=== PATIENT | male | born 1965 | race Two or more races ===

== ENCOUNTER 2016-11-14 14:27 | Emergency (ER) | payer OTHER ==
[~2016-11-14] VITALS: Ht 170.2 cm; Wt 81.8 kg
[2016-11-14 16:04] LABS: ASPARTATE AMINO TRANSFERASE 21 U/L (15-37); BLOOD UREA NITROGEN 14 mg/dL (7-18)
[2016-11-14 18:35] VITALS: BP 128/88
== END 2016-11-14 19:04 | disposition home or self-care (01) ==
LOC: ED 18:30
DX: N40.1 Benign prostatic hyperplasia with lower urinary tract symptoms (principal); R39.11 Hesitancy of micturition; R10.32 Left lower quadrant pain
CPT/HCPCS: 36415; 74020; 74176; 80053; 81003; 83690; 85025; 99285